=== PATIENT | female | born 1950 | race Two or more races ===

== ENCOUNTER 2022-03-05 06:24 | Day surgery (SDC) | payer OTHER ==
[~2022-03-05] VITALS: Ht 157.5 cm; Wt 64.4 kg
[~2022-03-05 06:24] MED LIST: LIPITOR20 MG PO; SYNTHROID50 MCG PO
== END 2022-03-05 16:15 | disposition home or self-care (01) ==
LOC: CIR.AMB 06:24
PROVIDERS: ATTEND Colon & Rectal Surgery
DX: K64.8 Other hemorrhoids (principal); Z20.822 Contact with and (suspected) exposure to COVID-19; E03.9 Hypothyroidism, unspecified